=== PATIENT | male | born 1995 | race Caucasian/White ===

== ENCOUNTER → 2022-03-04 | Outpatient (CLI) | payer BC ==
--- NOTE | 2022-03-04 14:07 | P.SLEEP ---
History of Present Illness DATE: 03/04/2022 CONSULTATION/NEW PATIENT EVALUATION HISTORY OF PRESENT ILLNESS/SLEEP-WAKE EVALUATION: 26 year old gentleman had been evaluated in the sleep center for significant excessive daytime sleepiness. SLEEP SCHEDULE: Patient usually work on afternoon shift. Usually sleep schedule on [id number] AM until 8:30 AM], during days of 1 AM until 8:30 AM]. FALLING ASLEEP: No problems with falling asleep, no TV in bedroom]. DURING SLEEP:No history of snoring. Patient wake up from sleep one time with nocturia. ] No history of hypnogogical hallucinations, sleep paralysis, or cataplexy. DURING THE DAY/WAKE STATE: In the morning patient wake up tired.]. Patient is on treatment with Ritalin extended release 54 mg a day and with this regimen [place] sleepiness scale i 8] Without Ritalin patient feels that he will be significantly sleepier.]. PAST MEDICAL HISTORY: ADD, acid reflux, asthma, depression]. PAST SURGICAL HISTORY: None]. MEDICATIONS: Ritalin 54 mg extended release once a day, clonazepam once a day 1 mg, venlafaxine 150 mg in the morning and 75 mg at bedtime]. SOCIAL HISTORY: Negative for] smoking, alcohol consumption occasional. FAMILY HISTORY:3 family members has narcolepsy, hypertension, heart problems]. REVIEW OF SYSTEMS:Sleepiness and tiredness during the day]. No fevers. No double vision. No recent chest pain. No shortness of breath. No abdominal pain. No bleeding episodes. No blood in urine. No seizure episodes. PHYSICAL EXAMINATION: GENERAL: A pleasant patient without any distress. VITAL SIGNS: B 143/89] , HR84] , R 16] , weigh 198] pounds, heigh 5 ]thelma 9 ]inches, body mass inde 29.2] . HEENT: PERRLA, EOMI. Evaluation of oropharynx showed tongue protrudes midline, low position of soft palate Mallampat 4]. NECK: Supple. No JVD. Thyroid is not palpable. 15-3/4] inches in circumference. LUNGS: Clear to percussion and to auscultation. Good air exchange. No wheezing or rhonchi. HEART: S1, S2 regular. No murmurs, gallops or rubs. ABDOMEN: Soft and nontender. Bowel sounds are present. No organomegaly appreciated. EXTREMITIES: No clubbing or cyanosis. PUBLICITY MANAGER: Awake, alert, and oriented x3. Cranial nerves 2 to 7 intact. There is no fasciculation or atrophy noted. No focal deficits observed. ASSESSMENT: 1. Daytime sleepiness while patient is on Ritalin. 3 close family members have narcolepsy. 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 2. Extremely low position of soft palate Mallampati 4. He awakenings from sleep one time per night with nocturia. Differential diagnosis would include obstructive sleep apnea, although patient does not have history of any snoring]. 3 history of ADD]. 4. Asthma []. 5 Depression. 6. Acid reflux. PLAN: 1. Polysomnography for evaluation of patient's breathing during sleep, if negative multiple sleep latency test for objective evaluation patient's symptoms of excessive sleepiness. No Ritalin, clonazepam, and venlafaxine during multiple sleep latency test. 2. CPAP/BiPAP titration if sleep study confirms obstructive sleep apnea- hypopnea syndrome. 3. Preferable position during sleep on the side. 4. No driving if patient feels any sleepiness. Patient is aware of civil and criminal liability for unsafe driving. 5. Sleep hygiene with regular sleep time for at least 7.5-8 hours. 6. Watching weight. Thank you very much for referring this patient for consultation. Sincerely, Yamil Grant MD, PhD, FAASM. Diplomat of [place] [employer], Sleep Medicine Board by [place] [employer] [employer] [facility] [place] Past Medical History Past Medical History: Asthma, GERD/Reflux, Pneumonia Additional Past Medical History / Comment(s): occ migraines, IBS, inguinal and "abdominal" hernias, hx rectal prolapse, hx small bowel "blockage" , hx vitiligo History of Any Multi-Drug Resistant Organisms: None Reported Past Surgical History: No Surgical Hx Reported Past Anesthesia/Blood Transfusion Reactions: No Reported Reaction Past Psychological History: ADD/ADHD, Anxiety, Depression, PTSD - Past Family History Mother Family Medical History: No Reported History Medications and Allergies Home Medications Medication Instructions Recorded Confirmed Type Albuterol Inhaler [Ventolin Hfa 1 - 2 puff INHALATION DIRECTED 10/02/15 12/25/15 History Inhaler] PRN Fluticasone Propion/Salmeterol 1 inhalation PO DIRECTED PRN 10/02/15 12/25/15 History [Advair 250-50 Diskus] Methylphenidate HCl [Concerta] 36 mg PO DAILY 10/02/15 12/25/15 History Montelukast Sodium [Singulair] 10 mg PO DAILY 10/02/15 12/25/15 History Omeprazole [PriLOSEC] 20 mg PO DAILY 10/02/15 12/25/15 History Venlafaxine HCl ER [Effexor Xr] 225 mg PO DAILY 10/02/15 12/25/15 History Stool Softner 1 tab PO BID 10/16/15 12/25/15 History clonazePAM [KlonoPIN] 1 mg PO DAILY 10/16/15 12/25/15 History Ibuprofen [Motrin] 600 mg PO Q6HR PRN #20 tab 12/20/15 12/25/15 Rx Allergies Allergy/AdvReac Type Severity Reaction Status Date / Time No Known Allergies Allergy Verified 12/25/15 09:08 Sleep Note - Sleep Note Sleep Note: Temperature: Pulse Rate: Respiratory Rate: Blood Pressure: SpO2: Height: Weight: BMI: Neck Circumference:
== END ==
LOC: SLEEP 13:24
PROVIDERS: ATTEND Internal Medicine
DX: G47.10 Hypersomnia, unspecified (principal); F90.9 Attention-deficit hyperactivity disorder, unspecified type; J45.909 Unspecified asthma, uncomplicated; F32.A Depression, unspecified; K21.9 Gastro-esophageal reflux disease without esophagitis
CPT/HCPCS: 99202